=== PATIENT | male | born 1990 | race Caucasian/White ===

== ENCOUNTER → 2017-03-20 | Outpatient (CLI) | payer BC ==
[~2017-03-20] MED LIST: ASPI-390 PO; MULT-506 PO
[2017-03-20 12:31] LABS: BASO % 0.3 %; BASO ABS # 0.02 K/uL (0-0.2); COMPLETE YES; EOS % 2.4 %; HEMATOCRIT 44.6 % (42-52); IG% 0.1 %; LYMPH % 39.1 %; LYMPH ABS # 2.61 K/uL (1.2-3.4); MEAN CELL VOLUME 84.8 fL (80-100); MEAN CORPUSCULAR HEMOGLOBIN 30.2 pg (25-34); MEAN CORPUSCULAR HGB CONC 35.7 g/dl (32-36); MEAN PLATELET VOLUME 9.8 fL (7.4-10.4); MONO % 8.1 %; PLATELET COUNT 279 K/uL (130-400); RED BLOOD COUNT 5.26 M/uL (4.7-6.1); WHITE BLOOD COUNT 6.67 K/uL (4.8-10.8)
[2017-03-20 12:49] LABS: ALT/SGPT 49 U/L (12-78); BLOOD UREA NITROGEN 10 mg/dl (7-18); BUN/CREATININE RATIO 9.6 (10-20); CARBON DIOXIDE 25 mmol/L (21-32); CHLORIDE 104 mmol/L (98-107); CHOLESTEROL 220 mg/dl (0-200); CREATININE 1.01 mg/dl (0.60-1.40); GLUCOSE 99 mg/dl (70-99); POTASSIUM 3.9 mmol/L (3.5-5.1); SODIUM 136 mmol/L (136-145); TRIGLYCERIDES 155 mg/dl (0-150); VERY LOW DENSITY LIPOPROT CALC 31 mg/dl
[2017-03-20 12:50] LABS: ESTIMATED AVERAGE GLUCOSE 100 mg/dl; HA1C FLAG Normal (Normal)
[2017-03-20 12:56] LABS: ALKALINE PHOSPHATASE 74 U/L (45-117); AST/SGOT 26 U/L (15-37); CHOLESTEROL/HDL RATIO 5.6; HDL CHOLESTEROL 39 mg/dl; LDL CHOLESTEROL CALCULATED 150 mg/dl
== END | disposition home or self-care (01) ==
LOC: C.LABBFT 09:23
PROVIDERS: ATTEND Physician Assistant
DX: Z51.81 Encounter for therapeutic drug level monitoring (principal); Z79.899 Other long term (current) drug therapy

== ENCOUNTER 2023-10-07 13:11 | Inpatient (IN) ==
[2023-10-07] MEDS: ONDANSETRON INJ 2 MG/ML 2 ML VIAL IV STA (14:08)
[2023-10-07] MEDS: ONDANSETRON INJ 2 MG/ML 2 ML VIAL ONE (14:08)
[2023-10-07 14:28] LABS: Basophils # (auto) 0.03 K/uL (0.00-0.20); Basophils % (auto) 0.4 %; Eosinophils # (auto) 0.09 K/uL (0.00-0.50); Eosinophils % (auto) 1.2 %; Hematocrit (blood only) 38.7 % (42.0-52.0); Immature Granulocytes # (auto) 0.01 K/uL (0.01-0.20); Immature Granulocytes % (auto) 0.1 %; Lymphocytes % (auto) 16.8 %; Mean Corpuscular Hemoglobin 28.6 pg (25.0-34.0); Mean Corpuscular Hgb Conc 36.2 g/dL (32.0-36.0); Mean Platelet Volume 8.6 fL (9.4-12.4); Monocytes # (auto) 0.45 K/uL (0.11-0.59); Monocytes % (auto) 5.8 %; Neutrophils # (auto) 5.84 K/uL (1.40-6.50); Neutrophils % (auto) 75.7 %; Platelet Count 287 K/uL (130-400); RDW Coefficient of Variation 11.7 % (11.5-14.5); RDW Standard Deviation 33.2 fL (36.4-46.3); White Blood Count 7.72 K/ul (4.8-10.8)
[2023-10-07 14:47] LABS: Albumin Level 4.5 gm/dl (3.4-5.0); BUN Creatinine Ratio 14.1 (10-20); Bilirubin,Total 0.8 mg/dl (0.2-1.0); Calcium 8.4 mg/dl (8.6-10.3); Creatinine Clr Calc Pharmacy 147.9 ml/min; Est GFR (African American) 131.8 ml/min; Est GFR (Non-African American) 113.7 ml/min; Globulin 2.3 gm/dl (2.5-4.0); Potassium 3.2 mmol/L (3.5-5.1); Total Protein 6.8 gm/dl (6.0-8.3)
--- NOTE | 2023-10-07 14:56 | Emergency Department Note ---
Impression & Plan Acute hyponatremia, Abdominal pain, Acute hypokalemia ED Provider Note NAME: FRANCI LLAMAS AGE: 33 SEX: M : 1990 ARRIVES VIA: Walk-In INFORMANT: Patient ED PROVIDER(S): Man Harris DO CHIEF COMPLAINT: abdominal pain HPI: Patient is a 33-year-old male with past medical history of appendectomy, perianal abscess who presents to the ER for her right upper quadrant pain which has been coming and going for the past 2 months. Associated with nausea. When the pain gets severe he gets paresthesias in the bilateral legs. Denies any headache or change in vision. No chest pain or shortness of breath. No dysuria, urgency, or frequency. No other exacerbating or remitting factors. ADDITIONAL HISTORY OBTAINED: Per HPI Chronic Medical/Social Conditions Affecting Care: Per HPI PAST MEDICAL HISTORY:See Below PAST SURGICAL HISTORY:See Below FAMILY HISTORY:See Below SOCIAL HISTORY:See Below HOME MEDICATIONS:See Below ALLERGIES:See Below VITALS:See Below PHYSICAL EXAMINATION: GENERAL: Sitting up in bed, alert, well appearing, well nourished, no distress, non-toxic EYE EXAM: normal conjunctiva. OROPHARYNX: no exudate, no erythema, lips, buccal mucosa, and tongue normal and mucous membranes are moist NECK: supple, no nuchal rigidity, no adenopathy, non-tender LUNGS: Clear to auscultation. Normal chest wall mechanics HEART: no murmurs, S1 normal and S2 normal ABDOMEN: abdomen soft, TTP in RUQ, normo-active bowel sounds, no masses, no rebound or guarding. BACK: Back is symmetrical on inspection and there is no deformity, no midline tenderness, no CVA tenderness. SKIN: no rashes and no bruising UPPER EXTREMITIES: upper extremities are grossly normal. LOWER EXTREMITIES: No pitting edema. NEURO EXAM: Normal sensorium, cranial nerves II-XII grossly intact, normal speech, no gross weakness of arms, no gross weakness of legs. MEDICAL DECISION MAKING: Patient is a 33-year-old male who presents the ER for the above-stated complaint. IV was established blood work was obtained. Labs show no significant leukocytosis or anemia. BMP with some mild hyponatremia 126 and hypokalemia 3.2. LFTs bilirubin was unremarkable. Lipase was normal. UA was clean. Ultrasound the gallbladder was unremarkable. Patient was given lorazepam as well as a GI cocktail and Toradol. He was discussed with the hospitalist for further evaluation management treatment. Consults/Care Managements Discussions: Per MDM Triage Nursing notes reviewed. Limited review of prior medical records performed Vital Signs: reviewed and remarkable for HTN and tachy Differential diagnosis: Differential diagnoses includes but is not limited to gastritis, peptic ulcer disease, GERD, gallbladder disease, pancreatitis, small bowel obstruction, appendicitis, diverticulitis, hernia, urinary tract infection, torsion, /ectopic (if female), perforation, trauma, infectious. ER treatment provided: See below Diagnostics interpreted by me include EKG and cardiac monitoring as listed below: -Cardiac Monitoring: An order was placed for continuous cardiac monitoring. The monitor shows a rate of 90 with sinus rhythm. -ECG: none -Laboratory studies:Interpreted by me as stated above in MDM and shown below. Imaging studies: Xrays: As interpreted by me:none CTs show: none Ultrasound the gallbladder was unremarkable Procedures:none Critical Care: None Past Med/Surg History Medical History Acute appendicitis with localized peritonitis Mood disorder History of COVID-19 Surgical History History of appendectomy S/P wisdom tooth extraction S/P shoulder surgery Family History Grandmother Breast cancer Grandfather Myocardial infarction Sister Crohn's disease Celiac disease Denies family history of Ovarian cancer Prostate cancer Colorectal cancer Social History (Updated 05/28/23 @ 16:18 by Najma Do LPN) Smoking Status: Never smoker Second Hand Exposure: No; Do You Dip or Chew Tobacco: No; Hx Alcohol Use: Yes Alcohol type: beer Alcohol Intake Frequency: 2-4 x/Month Hx Substance Use: No Preferred Language: Faroese Communication Ability: Effective Visual Impairment: No Limitations Hearing Ability: Normal Rolled Ham Lacer Required: No Beliefs That Will Affect Care: None marital status: Current Living Situation: Spouse and Family current occupational status: employed 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 Feels Safe at Home: Yes Childhood Exposure to Second-Hand Smoke: No Diet: regular Dental Care, Regularly: Yes Physical Activity Frequency: Daily Seatbelt Use: always Assistive Devices: Glasses Allergies Allergies Allergy/AdvReac Type Severity Reaction Status Date / Time Sulfa (Sulfonamide Allergy Unknown HAPPENED Verified 10/07/23 15:49 Antibiotics) AN prednisone AdvReac Intermediate keeps him Verified 10/07/23 15:49 awake at night Home Meds Home Medications Medication Instructions Recorded Confirmed ibuprofen 200 mg tablet 600 - 800 mg PO Q6H PRN Pain 08/28/20 10/07/23 multivitamin 1 tab PO HS 08/28/20 10/07/23 aripiprazole 2 mg tablet (Abilify) 2 mg PO DAILY 07/24/22 10/07/23 lorazepam 0.5 mg tablet 0.5 mg PO DIRECTED PRN Anxiety 10/07/23 10/07/23 Previous Rx's Medication Instructions Recorded ofloxacin 0.3 % eye drops 1 drp ophthalmic (eye) QID 5 days 09/19/23 #5 mL Results & Data (ED) Vital Signs Vital Signs - 24 hr 10/07/23 13:27 10/07/23 15:34 10/07/23 15:34 Temperature 36.2 C L Temperature Source Temporal Artery Scan Pulse Rate 101 H 99 H Pulse Rate [Apical] 99 H Pulse Rhythm Regular Regular Pulse Rhythm [Apical] Regular Pulse Strength Normal Pulse Strength [Apical] Normal Respiratory Rate 20 18 20 Respiratory Effort / Characteristics Non-Labored Spontaneous Non-Labored Spontaneous Respiratory Depth Normal Normal Respiratory Pattern Regular Regular Blood Pressure 145/93 H Blood Pressure [Left Arm] 172/86 H Blood Pressure Mean 110 Blood Pressure Mean [Left Arm] 114 Blood Pressure Position Sitting Blood Pressure Position [Left Arm] Lying Pulse Oximetry 98 99 99 Oxygen Delivery Method Room Air Room Air Room Air Sepsis Recent Fever Within 48 Hours No Sepsis New/Unexplained Change in Mental Status No Sepsis Action Taken by Nursing No Action Required 10/07/23 16:07 Temperature Temperature Source Pulse Rate 92 H Pulse Rate [Apical] Pulse Rhythm Pulse Rhythm [Apical] Pulse Strength Pulse Strength [Apical] Respiratory Rate Respiratory Effort / Characteristics Respiratory Depth Respiratory Pattern Blood Pressure Blood Pressure [Left Arm] Blood Pressure Mean Blood Pressure Mean [Left Arm] Blood Pressure Position Blood Pressure Position [Left Arm] Pulse Oximetry Oxygen Delivery Method Sepsis Recent Fever Within 48 Hours Sepsis New/Unexplained Change in Mental Status Sepsis Action Taken by Nursing Laboratory Data 10/07/23 14:00 10/07/23 17:59 Lab Results 10/07/23 10/07/23 10/07/23 Range/Units 14:00 15:34 15:35 WBC 7.72 (4.8-10.8) K/ul RBC 4.90 (4.70-6.10) M/uL Hgb 14.0 (14.0-18.0) g/dl Hct 38.7 L (42.0-52.0) % MCV 79.0 L (80.0-100.0) fL MCH 28.6 (25.0-34.0) pg MCHC 36.2 H (32.0-36.0) g/dL RDW Std Deviation 33.2 L (36.4-46.3) fL RDW Coeff of Yefri 11.7 (11.5-14.5) % Plt Count 287 (130-400) K/uL MPV 8.6 L (9.4-12.4) fL Immature Gran % (Auto) 0.1 % Neut % (Auto) 75.7 % Lymph % (Auto) 16.8 % Freestone % (Auto) 5.8 % Eos % (Auto) 1.2 % Baso % (Auto) 0.4 % Neut # (Auto) 5.84 (1.40-6.50) K/uL Lymph # (Auto) 1.30 (1.20-3.40) K/uL Freestone # (Auto) 0.45 (0.11-0.59) K/uL Eos # (Auto) 0.09 (0.00-0.50) K/uL Baso # (Auto) 0.03 (0.00-0.20) K/uL Immature Gran # (Auto) 0.01 (0.01-0.20) K/uL Sodium 126 L (136-145) mmol/L Potassium 3.2 L (3.5-5.1) mmol/L Chloride 93 L (98-107) mmol/L Carbon Dioxide 23 (21-32) mmol/L Anion Gap 10 (3-11) BUN 12 (6-23) mg/dl Creatinine 0.85 (0.6-1.4) mg/dl Est Cr Clr Drug Dosing 147.9 ml/min Est GFR ( Amer) 131.8 ml/min Est GFR (Non-Af Amer) 113.7 ml/min BUN/Creatinine Ratio 14.1 (10-20) Glucose 103 H (70-99(Fasting)) mg/dl Osmolality 259 L (280-300) mOsm/kg Calcium 8.4 L (8.6-10.3) mg/dl Phosphorus (2.5-4.9) mg/dl Magnesium (1.7-2.4) mg/dl Total Bilirubin 0.8 (0.2-1.0) mg/dl AST 28 (13-39) U/L ALT 32 (7-52) U/L Alkaline Phosphatase 54 (34-104) U/L Total Protein 6.8 (6.0-8.3) gm/dl Albumin 4.5 (3.4-5.0) gm/dl Globulin 2.3 L (2.5-4.0) gm/dl Albumin/Globulin Ratio 2.0 (0.9-2) Lipase 4 L (11-82) U/L Urine Color Yellow Urine Appearance Clear (Clear) Urine pH 6.0 (4.5-7.5) Ur Specific Broughton 1.011 (1.000-1.030) Urine Protein Negative (Negative) Urine Glucose (UA) Negative (Negative) Urine Ketones 2+ H (Negative) Urine Blood Negative (Negative) Urine Nitrite Negative (Negative) Urine Bilirubin Negative (Negative) Urine Urobilinogen Negative (Negative) Ur Leukocyte Esterase Trace H (Negative) Urine WBC (Auto) 0-5 (0-5) /hpf Urine RBC (Auto) 0-2 (0-2) /hpf U Hyaline Cast (Auto) 0-2 (0-2) /lpf U Epithel Cells (Auto) 0-2 (0-2) /hpf Urine Bacteria (Auto) None Seen (None Seen) Urine Osmolality 352 L (500-800) mOsm/kg Ur Random Sodium 46 mmol/L 10/07/23 Range/Units 17:59 WBC (4.8-10.8) K/ul RBC (4.70-6.10) M/uL Hgb (14.0-18.0) g/dl Hct (42.0-52.0) % MCV (80.0-100.0) fL MCH (25.0-34.0) pg MCHC (32.0-36.0) g/dL RDW Std Deviation (36.4-46.3) fL RDW Coeff of Yefri (11.5-14.5) % Plt Count (130-400) K/uL MPV (9.4-12.4) fL Immature Gran % (Auto) % Neut % (Auto) % Lymph % (Auto) % Freestone % (Auto) % Eos % (Auto) % Baso % (Auto) % Neut # (Auto) (1.40-6.50) K/uL Lymph # (Auto) (1.20-3.40) K/uL Freestone # (Auto) (0.11-0.59) K/uL Eos # (Auto) (0.00-0.50) K/uL Baso # (Auto) (0.00-0.20) K/uL Immature Gran # (Auto) (0.01-0.20) K/uL Sodium 130 L (136-145) mmol/L Potassium 4.5 D (3.5-5.1) mmol/L Chloride 101 (98-107) mmol/L Carbon Dioxide 22 (21-32) mmol/L Anion Gap 7 (3-11) BUN 10 (6-23) mg/dl Creatinine 0.80 (0.6-1.4) mg/dl Est Cr Clr Drug Dosing 157.2 ml/min Est GFR ( Amer) 135.1 ml/min Est GFR (Non-Af Amer) 116.6 ml/min BUN/Creatinine Ratio 12.5 (10-20) Glucose 110 H (70-99(Fasting)) mg/dl Osmolality (280-300) mOsm/kg Calcium 7.9 L (8.6-10.3) mg/dl Phosphorus 3.3 (2.5-4.9) mg/dl Magnesium 1.9 (1.7-2.4) mg/dl Total Bilirubin (0.2-1.0) mg/dl AST (13-39) U/L ALT (7-52) U/L Alkaline Phosphatase (34-104) U/L Total Protein (6.0-8.3) gm/dl Albumin (3.4-5.0) gm/dl Globulin (2.5-4.0) gm/dl Albumin/Globulin Ratio (0.9-2) Lipase (11-82) U/L Urine Color Urine Appearance (Clear) Urine pH (4.5-7.5) Ur Specific Broughton (1.000-1.030) Urine Protein (Negative) Urine Glucose (UA) (Negative) Urine Ketones (Negative) Urine Blood (Negative) Urine Nitrite (Negative) Urine Bilirubin (Negative) Urine Urobilinogen (Negative) Ur Leukocyte Esterase (Negative) Urine WBC (Auto) (0-5) /hpf Urine RBC (Auto) (0-2) /hpf U Hyaline Cast (Auto) (0-2) /lpf U Epithel Cells (Auto) (0-2) /hpf Urine Bacteria (Auto) (None Seen) Urine Osmolality (500-800) mOsm/kg Ur Random Sodium mmol/L Administered Medications Discontinued Medications Al Hydrox/Mg Hydrox/Simethicone (Aluminum/Magnesium Susp 30 Ml Udc) 30 ml PO NOW STA Stop: 10/07/23 16:27 Last Admin: 10/07/23 17:52 Dose: 30 ml Documented By: KAYLI Sodium Chloride (Nss) 1,000 mls @ 999 mls/hr IV .Q1H1M ONE Stop: 10/07/23 15:56 Last Infusion: 10/07/23 17:45 Dose: Infused Documented By: Admin: 10/07/23 15:15 Dose: 999 mls/hr Documented By: ELENA Sodium Chloride (Nss) 1,000 mls @ 999 mls/hr IV .Q1H1M ONE Stop: 10/07/23 16:12 Last Infusion: 10/07/23 17:45 Dose: Infused Documented By: Admin: 10/07/23 15:50 Dose: 999 mls/hr Documented By: JANE Famotidine (Pepcid 20mg Iv Push) 20 mg in 5 mls @ 2.5 mls/min IV NOW STA Stop: 10/07/23 16:26 Last Admin: 10/07/23 17:32 Dose: 2.5 mls/min Documented By: ARNULFO Pantoprazole Sodium 40 mg/ (Syringe) 10 mls @ 5 mls/min IV NOW ONE Stop: 10/07/23 16:31 Last Admin: 10/07/23 17:33 Dose: 5 mls/min Documented By: CC Ketorolac Tromethamine (Ketorolac Tromethamine 15 Mg/Ml Vial) 15 mg IV NOW ONE Stop: 10/07/23 14:57 Last Admin: 10/07/23 15:15 Dose: 15 mg Documented By: ELENA Lorazepam (Lorazepam 1 Mg/1 Ml Syr Ed Inj Use) 0.5 mg IV ONE STA Stop: 10/07/23 15:42 Last Admin: 10/07/23 15:48 Dose: 0.5 mg Documented By: JANE Ondansetron HCl (Ondansetron Inj 2 Mg/Ml 2 Ml Vial) 4 mg IV NOW STA Stop: 10/07/23 14:06 Last Admin: 10/07/23 14:08 Dose: 4 mg Documented By: VALERIE Ondansetron HCl (Ondansetron Inj 2 Mg/Ml 2 Ml Vial) Confirm Administered Dose 4 mg .ROUTE .STK-MED ONE Stop: 10/07/23 14:07 Last Admin: 10/07/23 14:08 Dose: Not Given Documented By: VALERIE Potassium Chloride (Potassium Chloride Crtab 20 Meq Tabcr) 40 meq PO NOW STA Stop: 10/07/23 15:13 Last Admin: 10/07/23 15:48 Dose: 40 meq Documented By: JANE Imaging Data Radiologist's Impression: Gallbladder Ultrasound 10/07/23 13:32 US gallbladder CLINICAL HISTORY: RUQ abdominal pain with nausea, diarrhea COMPARISON STUDY: CT of the abdomen and pelvis December 29, 2022. FINDINGS: Liver is sonographically normal. There is no biliary ductal dilatation. Common bile duct measures 5 mm in caliber. The gallbladder is normal. There are no gallstones. Pancreas is unremarkable. The pancreatic tail is obscured by bowel gas. There is no right hydronephrosis. IMPRESSION: No significant abnormality within the right upper quadrant by sonography. ACT 112: Negative or not required by law. Electronically signed by: Asohk Choudhary M.D. 10/07/2023 3:08 PM Discharge Plan Visit Data Chief Complaint: Abdominal Pain Stated Complaint: FLANK PAIN, NAUSEA, SHAKING ED Provider: Man Harris Discharge Problem: Acute hyponatremia, Abdominal pain, Acute hypokalemia Forms Stand Alone Forms: [facility] Prescriptions Prescriptions: No Action ofloxacin 0.3 % drops 1 drp ophthalmic (eye) QID 5 Days Qty: 5 0RF Rx Instructions: PER PT'S SPOUSE, "USED THIS AM, EYE LOOKED A LITTLE PINK". multivitamin Tablet 1 tab PO HS ibuprofen 200 mg tablet 600 - 800 mg PO Q6H PRN (Reason: Pain) aripiprazole [Abilify] 2 mg tablet 2 mg PO DAILY lorazepam 0.5 mg tablet 0.5 mg PO DIRECTED PRN (Reason: Anxiety) Referrals Referrals: Joan Jenkins CRNP [Primary Care Provider] - Discharge Problem: Abdominal pain Qualifiers: Abdominal location: unspecified location Qualified Code(s): R10.9 - Unspecified abdominal pain
--- NOTE | 2023-10-07 15:09 | Ultrasound Report ---
US gallbladder CLINICAL HISTORY: RUQ abdominal pain with nausea, diarrhea COMPARISON STUDY: CT of the abdomen and pelvis December 29, 2022. FINDINGS: Liver is sonographically normal. There is no biliary ductal dilatation. Common bile duct me asures 5 mm in caliber. The gallbladder is normal. There are no gallstones. Pancreas is unremarkable. The pancreatic tail is obscured by bowel gas. There is no right hydronephrosis. IMPRESSION: No significant abnormality within the right upper quadrant by sonography. ACT 112: Negative or not required by law. Electronically signed by: Ashok Choudhary M.D. 10/07/2023 3:08 PM
[2023-10-07] MEDS: SODIUM CHLORIDE 0.9% 1,000 ML IV ONE ×2 (15:15→15:50)
[2023-10-07] MEDS: KETOROLAC TROMETHAMINE 15 MG/ML VIAL IV ONE (15:15)
[2023-10-07] MEDS: POTASSIUM CHLORIDE CRTAB 20 MEQ TABCR PO STA (15:48)
[2023-10-07] MEDS: LORazepam 1 MG/1 ML SYR ED Inj Use IV STA (15:48)
--- NOTE | 2023-10-07 16:02 | History & Physical Report ---
Date of Service October 07, 2023 Assessment & Plan (1) Acute hyponatremia: Plan: Increased diarrhea with free water intake Appears hypovolemic Urine osm, Na Repeat Na level @ 6pm and if improving will continue with IV normal saline (2) Diarrhea: Plan: Acute on chronic - stool and c. diff PCR requested by patient which appears reasonably since it is acutely worse likely contributing towards low sodium No prior lactose testing noted Diffuse moderate erythema and target ulceration in rectosigmoid colon in 2021 approximately pathology did not show this was Crohn's however given his family history strongly recommend he continues follow-up with gastroenterology Celiac testing negative in 2021 Lactose intolerant diet while admitted Recommend food diary on discharge (3) Biliary colic: Plan: He describes a good biliary colic history, although possibly this pain is just gastritis (see below) No acute infection suspected If pain does not resolve with pantoprazole suggest he follows up with his general surgery to discuss possible HIDA scan +/- cholecystectomy as outpatient (4) Acute gastritis: Plan: Increased burping, abdominal pain Pantoprazole 40mg IV + famotidine 20mg IV, continue pantoprazole 40mg PO daily starting tomorrow Follow up with GI as outpatient given strong family history of inflammatory bowel disease (5) Acute hypokalemia: Plan: Diarrhea, poor oral intake Replace and repeat level @ 6pm Plan VTE prophylaxis - low risk Diet - clear liquid, low-fat, lactose intolerant Disposition - admit to med/tele Admission and Anticipated Discharge Date Admission Date: October 07, 2023 History of Present Illness Chief Complaint: Dizzy Abdominal pain Primary Care Provider: PABLO Cramer Hans Mcdonald is a 33 year old male who presents to the ER with lightheadedness, tingling in fingers and abdominal pain. He reports ongoing right upper quadrant abdominal pain intermittently for some time - worse while laboring, better on lying down, worse on eating fatty meal or milk. Severity of pain today 6/10, waxing and waning, no radiation, lasts seconds to minutes, hours between episodes but getting more frequent. Associated nausea but no vomiting. He denies any acid taste in his mouth or reflux but has been burping more recently. Because of the increased frequency he scheduled an appointment with his PCP at 3pm today but ultimately was sent to the ER as his symptoms became worse with lightheadedness and tingling in fingers that started today. He has notably been trying to drink more water with half a gallon this morning to help his symptoms although this isn't that unusual for him. He denies any respiratory or urinary symptoms. Notes pink eye 3 weeks ago. He has chronic diarrhea with strong family history of IBS and even a colonoscopy concerning for this in recto-sigmoid area. Although ultimately pathology was benign and he was diagnosed with IBS. Prior celiac testing negative. Never had lactose intolerance testing. This has been worse the last 3-4 days and more explosive but actually improved today. He also notable has an ongoing perianal abscess that drains occasionally. He follows with general surgery for this. Currently no acute issues with this. Allergies Allergy/AdvReac Type Severity Reaction Status Date / Time Sulfa (Sulfonamide Allergy Unknown HAPPENED Verified 10/07/23 15:49 Antibiotics) AN INFANT prednisone AdvReac Intermediate keeps him Verified 10/07/23 15:49 awake at night Home Medications Medication Instructions Recorded Confirmed Type ibuprofen 200 mg tablet 600 - 800 mg PO Q6H PRN Pain 08/28/20 10/07/23 History multivitamin 1 tab PO HS 08/28/20 10/07/23 History aripiprazole 2 mg tablet (Abilify) 2 mg PO DAILY 07/24/22 10/07/23 History ofloxacin 0.3 % eye drops 1 drp ophthalmic (eye) QID 5 days 09/19/23 10/07/23 Rx #5 mL lorazepam 0.5 mg tablet 0.5 mg PO DIRECTED PRN Anxiety 10/07/23 10/07/23 History Past Med/Surg History Medical History Acute appendicitis with localized peritonitis Mood disorder History of COVID-19 Surgical History History of appendectomy S/P wisdom tooth extraction S/P shoulder surgery Family History Grandmother Breast cancer Grandfather Myocardial infarction Sister Crohn's disease Celiac disease Denies family history of Ovarian cancer Prostate cancer Colorectal cancer Social History (Updated 05/28/23 @ 16:18 by Najma Do LPN) Smoking Status: Never smoker Second Hand Exposure: No; Do You Dip or Chew Tobacco: No; Hx Alcohol Use: Yes Alcohol type: beer Alcohol Intake Frequency: 2-4 x/Month Hx Substance Use: No Preferred Language: Dutch Communication Ability: Effective Visual Impairment: No Limitations Hearing Ability: Normal Weapons Engineer Required: No Beliefs That Will Affect Care: None marital status: Current Living Situation: Family current occupational status: employed 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 Other Information That Helps Us Care for You: No Feels Safe at Home: Yes Safety Concerns: Feels Safe At This Time Childhood Exposure to Second-Hand Smoke: No Diet: regular Dental Care, Regularly: Yes Physical Activity Frequency: Daily Seatbelt Use: always Assistive Devices: Glasses Review of Systems Review of Systems: All systems reviewed & are unremarkable except as noted in HPI & below Physical Exam Constitutional: WD/WN, vitals as above Eyes: + nystagmus ENMT: external ear and nose normal, oropharynx normal Neck: trachea midline, no thyromegaly Respiratory: normal respiratory effort, lungs clear to auscultation Cardiovascular: RRR, no murmur, no edema Gastrointestinal (Abdomen): Inspection/Auscultation: abdomen normal to inspection; abdomen not distended Percussion/Palpation: + abdomen tender (RUQ pain) and abdomen soft; no guarding and abdomen not rigid Musculoskeletal: no cyanosis or clubbing, extremities motor strength 5/5 Skin: no rashes, warm and dry Neurologic: moves all extremities and awake; not confused Psychiatric: A+Ox3, euthymic affect Genitourinary: no CVA tenderness Results & Data Results & Data Vital Signs (Past 12 Hours) Vital Signs Temp Pulse Pulse Resp BP BP Pulse Ox 10/07/23 15:34 99 H 20 99 10/07/23 15:34 99 H 18 172/86 H 99 10/07/23 13:27 36.2 C L 101 H 20 145/93 H 98 O2 Del Method 10/07/23 15:34 Room Air 10/07/23 15:34 Room Air 10/07/23 13:27 Room Air Laboratory Results Abnormal lab results 10/07/23 10/07/23 Range/Units 14:00 15:35 Hct 38.7 L (42.0-52.0) % MCV 79.0 L (80.0-100.0) fL MCHC 36.2 H (32.0-36.0) g/dL RDW Std Deviation 33.2 L (36.4-46.3) fL MPV 8.6 L (9.4-12.4) fL Sodium 126 L (136-145) mmol/L Potassium 3.2 L (3.5-5.1) mmol/L Chloride 93 L (98-107) mmol/L Glucose 103 H (70-99(Fasting)) mg/dl Osmolality 259 L (280-300) mOsm/kg Calcium 8.4 L (8.6-10.3) mg/dl Globulin 2.3 L (2.5-4.0) gm/dl Lipase 4 L (11-82) U/L Urine Ketones 2+ H (Negative) Ur Leukocyte Esterase Trace H (Negative) Diagnostic Findings US gallbladder CLINICAL HISTORY: RUQ abdominal pain with nausea, diarrhea COMPARISON STUDY: CT of the abdomen and pelvis December 29, 2022. FINDINGS: Liver is sonographically normal. There is no biliary ductal dilatation. Common bile duct measures 5 mm in caliber. The gallbladder is normal. There are no gallstones. Pancreas is unremarkable. The pancreatic tail is obscured by bowel gas. There is no right hydronephrosis. IMPRESSION: No significant abnormality within the right upper quadrant by sonography. Medications Administered ER Medications Given: Ondansetron 4mg IV Normal saline 1L bolus Toradol 15mg IV Normal saline 1L bolus Potassium chloride 40 meq PO Lorazepam 0.5mg IV Code Status & VTE Plan Code Status Full VTE Prophylaxis Plan VTE Prophylaxis will be ordered: No PG Care Time/CCT Total # of Minutes Spent Total Time Spent with Patient: Total time spent is greater than 50% in coordination of care (as documented) at patient's floor/unit and/or counseling patient: Coding Level of Care Code 61803 INT INP/OBS CARE 3/75MIN Diagnoses Acute hyponatremia E87.1 Diarrhea R19.7 Biliary colic K80.50 Acute gastritis K29.00 Acute hypokalemia E87.6
[2023-10-07 16:23] LABS: Appearance Urine Clear (Clear); Bacteria Urine Automated None Seen (None Seen); Bilirubin Urine Negative (Negative); Blood Urine Negative (Negative); Cast Urine Automated 0-2 /lpf (0-2); Color Urine Yellow; Epithelial Cell Urine Auto 0-2 /hpf (0-2); Glucose Urine UA Negative (Negative); Ketones Urine 2+ (Negative); Leukocyte Esterase Urine Trace (Negative); Nitrite Urine Negative (Negative); Protein Urine Negative (Negative); RBC Urine Automated 0-2 /hpf (0-2); Specific Gravity Urine 1.011 (1.000-1.030); Urobilinogen Urine Negative (Negative); WBC Urine Automated 0-5 /hpf (0-5)
[2023-10-07] MEDS: FAMOTIDINE 20MG IV PUSH 20 MG/5 ML SYR IV STA (17:32)
[2023-10-07] MEDS: PANTOprazole 40 MG in SYRINGE 0 ML IV ONE (17:33)
[2023-10-07] MEDS: ALUMINUM/MAGNESIUM SUSP 30 ML UDC PO STA (17:52)
[2023-10-07 18:36] LABS: BUN Creatinine Ratio 12.5 (10-20); Calcium 7.9 mg/dl (8.6-10.3); Creatinine Clr Calc Pharmacy 157.2 ml/min; Est GFR (African American) 135.1 ml/min; Est GFR (Non-African American) 116.6 ml/min; Magnesium 1.9 mg/dl (1.7-2.4); Phosphorus 3.3 mg/dl (2.5-4.9); Potassium 4.5 mmol/L (3.5-5.1)
[2023-10-07 19:00] LABS: Thyroid Stimulating Hormone 1.604 uIu/ml (0.300-4.500)
[2023-10-07] MEDS ORDERED: ONDANSETRON INJ 2 MG/ML 2 ML VIAL IV PRN (23:08)
[2023-10-08] MEDS: SODIUM CHLORIDE 0.9% 1,000 ML IV SCH (01:08)
[2023-10-08] MEDS: ACETAMINOPHEN 325 MG TAB PO PRN (01:08)
[2023-10-08] MEDS: PANTOprazole 40 MG TAB PO SCH (08:58)
[2023-10-08 09:55] LABS: Adenovirus F 40/41 PCR Not Detected (NotDetected); Astrovirus PCR Not Detected (NotDetected); Campylobacter PCR Not Detected (NotDetected); Cryptosporidium PCR Not Detected (NotDetected); Cyclospora cayetanensis PCR Not Detected (NotDetected); Entamoeba histolytica PCR Not Detected (NotDetected); Enteroaggregative E.coli(EAEC) Not Detected (NotDetected); Enteropathogenic E.coli (EPEC) Not Detected (NotDetected); Enterotoxigenic E.coli (ETEC) Not Detected (NotDetected); Giardia lamblia PCR Not Detected (NotDetected); Norovirus GI/GII PCR Not Detected (NotDetected); Plesiomonas shigelloides PCR Not Detected (NotDetected); Rotavirus A PCR Not Detected (NotDetected); Salmonella PCR Not Detected (NotDetected); Sapovirus PCR Not Detected (NotDetected); Shiga-like Toxin E.coli (STEC) Not Detected (NotDetected); Shigella/Enteroinvasive E.coli Not Detected (NotDetected); Vibrio cholerae PCR Not Detected (NotDetected); Vibrio species PCR Not Detected (NotDetected); Yersinia enterocolitica PCR Not Detected (NotDetected)
[2023-10-08 10:47] LABS: Hematocrit (blood only) 42.6 % (42.0-52.0); Mean Corpuscular Hemoglobin 28.6 pg (25.0-34.0); Mean Corpuscular Hgb Conc 35.2 g/dL (32.0-36.0); Mean Corpuscular Volume 81.1 fL (80.0-100.0); Mean Platelet Volume 8.9 fL (9.4-12.4); Platelet Count 272 K/uL (130-400); RDW Standard Deviation 35.4 fL (36.4-46.3); Red Blood Count 5.25 M/uL (4.70-6.10); White Blood Count 4.91 K/ul (4.8-10.8)
[2023-10-08 11:24] LABS: BUN Creatinine Ratio 10.2 (10-20); Calcium 8.7 mg/dl (8.6-10.3); Creatinine Clr Calc Pharmacy 139.6 ml/min; Est GFR (African American) 129.9 ml/min; Est GFR (Non-African American) 112.1 ml/min; Magnesium 2.2 mg/dl (1.7-2.4); Potassium 4.3 mmol/L (3.5-5.1)
--- NOTE | 2023-10-08 17:34 | Discharge Summary ---
Discharge Summary Date of Service October 08, 2023 Notes For Next Care Provider Patient's sodium rapidly corrected. Patient does have symptoms of biliary colic however an ultrasound of his gallbladder did not show any stones. Consideration for outpatient HIDA scan could be entertained. Patient does use caffeine and ibuprofen additionally there is some dyspepsia associate with his Abilify. Cautioned against using additional ibuprofen reducing his caffeine intake and try to use some prescription strength Pepcid for 2 weeks. Certainly if the symptoms persist consideration of endoscopy by primary care could be considered Medication Changes From Visit DC ibuprofen, Pepcid 40 daily for 14 days Admission HPI Per Admitting Provider Hans Mcdonald is a 33 year old male who presents to the ER with lightheadedness, tingling in fingers and abdominal pain. He reports ongoing right upper quadrant abdominal pain intermittently for some time - worse while laboring, better on lying down, worse on eating fatty meal or milk. Severity of pain today 6/10, waxing and waning, no radiation, lasts seconds to minutes, hours between episodes but getting more frequent. Associated nausea but no vomiting. He denies any acid taste in his mouth or reflux but has been burping more recently. Because of the increased frequency he scheduled an appointment with his PCP at 3pm today but ultimately was sent to the ER as his symptoms became worse with lightheadedness and tingling in fingers that started today. He has notably been trying to drink more water with half a gallon this morning to help his symptoms although this isn't that unusual for him. He denies any respiratory or urinary symptoms. Notes pink eye 3 weeks ago. He has chronic diarrhea with strong family history of IBS and even a colonoscopy concerning for this in recto-sigmoid area. Although ultimately pathology was benign and he was diagnosed with IBS. Prior celiac testing negative. Never had lactose intolerance testing. This has been worse the last 3-4 days and more explosive but actually improved today. He also notable has an ongoing perianal abscess that drains occasionally. He follows with general surgery for this. Currently no acute issues with this. Principal Dx & Hospital Course #1 = Principal Diagnosis (1) Acute hyponatremia: Increased diarrhea with free water intake Appears hypovolemic Urine osm, Na Repeat Na level day of discharge is normal (2) Diarrhea: Acute on chronic - stool and c. diff PCR negative Diarrhea has resolved Celiac testing negative in 2021 Lactose intolerant diet while admitted (3) Biliary colic: He describes a good biliary colic history, although possibly this pain is just gastritis (see below) No acute infection suspected If pain does not resolve with pantoprazole suggest he follows up with his general surgery to discuss possible HIDA scan +/- cholecystectomy as outpatient (4) Acute gastritis: Increased burping, abdominal pain Pantoprazole 40mg IV + famotidine 20mg IV, continue famotidine at time of discharge Follow up with GI as outpatient given strong family history of inflammatory bowel disease if symptoms or not improved with medical management Discharge Exam Patient awake alert appropriate no distress completed by significant other bedside Updated Medication List Medication Instructions Recorded Confirmed Type multivitamin 1 tab PO HS 08/28/20 10/07/23 History aripiprazole 2 mg tablet (Abilify) 2 mg PO DAILY 07/24/22 10/07/23 History ofloxacin 0.3 % eye drops 1 drp ophthalmic (eye) QID 5 days 09/19/23 10/07/23 Rx #5 mL lorazepam 0.5 mg tablet 0.5 mg PO DIRECTED PRN Anxiety 10/07/23 10/07/23 History famotidine 40 mg tablet (Pepcid) 40 mg PO DAILY #14 tabs 10/08/23 Rx Hospital Stay Data Consultations 10/07/23 15:16 ED Decision to Admit Stat Diagnostic Imagining Performed 10/07/23 13:32 US gallbladder Stat Pending Results Patient Have Any Pending Studies at Discharge: No Discharge Instructions Given to Patient (Per Discharging Provider) please follow up with your primary care provider to further discuss any additional testing and to be sure you are fully recovered Total Time Total Time Spent Total Time Spent (In Minutes): It required greater than 30 minutes to prepare this patient for discharge. Coding Level of Care Code 51790 INP/OBS DISCH >30 MIN Diagnoses Acute hyponatremia E87.1 Diarrhea R19.7 Biliary colic K80.50 Acute gastritis K29.00
== END 2023-10-08 14:38 | disposition home or self-care (01) | DRG 641 ==
LOC: ED 13:11 → SUATTDRO 17:51 → 2N 17:51